=== PATIENT | female | born 1965 | race African-American/Black ===

== ENCOUNTER 2016-09-19 06:22 | Emergency (ER) | payer MEDICAID ==
[~2016-09-19] VITALS: Ht 167.6 cm; Wt 84.1 kg
[~2016-09-19 06:22] MED LIST: ADVAIR; BUSPIRONE; DIPHENHYDRAMINE; FLUTICASONE; LEVOFLOXACIN; LEVOTHYROXINE; PRIL10; RANI-84; SULFAMETHOXAZOLE
[2016-09-19] MEDS ORDERED: ALBUTEROL (0.083%) 2.5MG/3ML NEB HHN ONE (07:45)
[2016-09-19] MEDS ORDERED: PREDNISONE 20MG TABLET PO ONE (07:45)
[2016-09-19] MEDS ORDERED: ACETAMINOPHEN WITH CODEINE 120-12MG/5ML UDC PO ONE (07:45)
[2016-09-19 08:07] LABS: CLARITY URINE CLEAR (CLEAR); COLOR URINE YELLOW (YELLOW); GLUCOSE URINE NEGATIVE (NEGATIVE); KETONES URINE NEGATIVE (NEGATIVE); LEUKOCYTE ESTERASE URINE NEGATIVE (NEGATIVE); NITRITE URINE NEGATIVE (NEGATIVE); OCCULT BLOOD URINE 1+ (NEGATIVE); PH URINE 5.5 (4.5-8.0); PROTEIN URINE TRACE (NEGATIVE); SPECIFIC GRAVITY URINE 1.028 (1.005-1.030); UROBILINOGEN URINE 0.2 E.U./dL (0.2-1.0)
[2016-09-19] MEDS ORDERED: ALBUTEROL (0.083%) 2.5MG/3ML NEB ONE (08:09)
[2016-09-19 08:18] LABS: WBC URINE 0-2 /hpf (0-2)
[2016-09-19 08:19] LABS: BACTERIA URINE 1+; MUCUS URINE 1+ /lpf (< = 2+); SQUAMOUS EPITHELIAL CELL URINE 2+ /lpf (RARE/1+)
[2016-09-19] MEDS ORDERED: IPRATROPIUM/ALBUTEROL 0.5-3(2.5)MG/3ML NEB HHN ONE (08:45)
[2016-09-19] MEDS ORDERED: LEVOFLOXACIN 750MG PREMIX 150 ML IV ONE (08:45)
[2016-09-19 10:35] VITALS: BP 134/80
== END 2016-09-19 12:00 | disposition home or self-care (01) ==
LOC: ER 07:38
DX: J18.9 Pneumonia, unspecified organism (principal); E03.9 Hypothyroidism, unspecified; J45.909 Unspecified asthma, uncomplicated; Z88.6 Allergy status to analgesic agent; Z91.041 Radiographic dye allergy status; Z90.81 Acquired absence of spleen
CPT/HCPCS: 71020; 81001; 81025; 94640; 96365; 99285; J1956; J7512; J7611; Z7610; J7620

== ENCOUNTER 2017-03-08 12:51 | Inpatient (IN) | payer MEDICAID ==
[~2017-03-08] VITALS: Ht 167.6 cm; Wt 83.0 kg
[~2017-03-08 12:51] MED LIST changes: -RANI-84; +RANI150T12
[2017-03-08] MEDS ORDERED: METHYLPREDNISOLONE SOD SUCC 125 MG/2 ML VIAL IV ONE (18:30)
[2017-03-08] MEDS ORDERED: ALBUTEROL (0.5%) 2.5MG/0.5ML NEB HHN ONE (18:30)
[2017-03-08] MEDS ORDERED: ALBUTEROL (0.083%) 2.5MG/3ML NEB HHN ONE (19:30)
[2017-03-08 21:15] LABS: BASOPHILS % 0.2 % (0.0-2.0); EOSINOPHILS % 0.9 % (0.0-5.0); HEMATOCRIT. 42.4 % (36.0-48.0); HEMOGLOBIN. 13.7 g/dL (12.0-16.0); LYMPHOCYTES % 10.2 % (20.0-50.0); MEAN CORPUSCULAR HEMOGLOBIN 31.3 pg (28.0-32.0); MEAN CORPUSCULAR VOLUME 96.9 fL (81.0-99.0); MEAN PLATELET VOLUME 11.3 fl (7.4-10.4); NEUTROPHILS % 84.7 % (40.0-76.0); RED BLOOD CELL COUNT 4.37 mill/uL (4.2-5.4); RED CELL DISTRIBUTION WIDTH 15.1 % (11.6-14.6)
[2017-03-08] MEDS ORDERED: CEFTRIAXONE SODIUM 1 G/VIAL IM ONE (21:15)
[2017-03-08] MEDS ORDERED: LEVOFLOXACIN 750MG PREMIX 150 ML IV ONE (21:15)
[2017-03-08 21:33] LABS: PLATELET 208 x1000/uL (130-400)
[2017-03-08 21:51] LABS: CARBON DIOXIDE 29 mEq/L (21-32); CHLORIDE 105 mEq/L (98-107)
[2017-03-08 22:00] LABS: TROPONIN I 0.03 ng/mL (0.00-0.04)
[2017-03-08] MEDS ORDERED: LIDOCAINE HCL 1% 20ML VIAL (Pyxis) INJ INFIL ONE (22:00)
[2017-03-08] MEDS ORDERED: FUROSEMIDE 20MG/2ML VIAL IVP ONE (23:00)
[2017-03-08] MEDS ORDERED: POTASSIUM CHLORIDE 10MEQ TABLET SR PO ONE (23:00)
[2017-03-09] VITALS (7 sets, daily range): BP systolic 106–140; BP diastolic 60–91
[2017-03-09] MEDS ORDERED: FLUT16SP15 BOTHNSTRLS (02:32)
[2017-03-09] MEDS ORDERED: DIPH25CA83 PO (02:33)
[2017-03-09] MEDS ORDERED: BUDE6HFA PO (02:42)
[2017-03-09] MEDS ORDERED: LEVO100T9 PO (02:42)
[2017-03-09] MEDS: ENOXAPARIN 40MG/0.4ML SYR SUBCUT SCH (08:37)
[2017-03-09] MEDS: LEVOTHYROXINE SODIUM 100MCG TABLET PO SCH (08:37)
[2017-03-09] MEDS: OMEPRAZOLE 20MG CAPSULE EXTENDED RELEASE PO SCH (08:37)
[2017-03-09 08:42] LABS: BASOPHILS % 0.3 % (0.0-2.0); HEMATOCRIT. 42.8 % (36.0-48.0); HEMOGLOBIN. 13.9 g/dL (12.0-16.0); LYMPHOCYTES % 10.2 % (20.0-50.0); MEAN CORPUSCULAR HEMOGLOBIN 31.4 pg (28.0-32.0); MEAN CORPUSCULAR VOLUME 96.6 fL (81.0-99.0); MONOCYTES % 5.8 % (2.0-8.0); NEUTROPHILS % 83.7 % (40.0-76.0); RED BLOOD CELL COUNT 4.43 mill/uL (4.2-5.4)
[2017-03-09] MEDS: IPRATROPIUM/ALBUTEROL 0.5-3(2.5)MG/3ML NEB HHN SCH ×4 (08:51→19:54)
[2017-03-09] MEDS ORDERED: DIPHENHYDRAMINE 25MG CAPSULE PO PRN (09:00)
[2017-03-09 09:11] LABS: CARBON DIOXIDE 32 mEq/L (21-32); CHLORIDE 101 mEq/L (98-107)
[2017-03-09 11:01] LABS: PLATELET 258 x1000/uL (130-400)
[2017-03-09] MEDS: METHYLPREDNISOLONE SOD SUCC 40 MG/ML VIAL IV SCH (19:35)
[2017-03-09] MEDS: LEVOFLOXACIN 500MG PREMIX 100 ML IV SCH (20:50)
[2017-03-10] VITALS: BP 104/70
[2017-03-10] MEDS: IPRATROPIUM/ALBUTEROL 0.5-3(2.5)MG/3ML NEB HHN SCH ×6 (00:08→21:20)
[2017-03-10] MEDS: METHYLPREDNISOLONE SOD SUCC 40 MG/ML VIAL IV SCH ×3 (03:03→18:03)
[2017-03-10 04:00] VITALS: BP 113/62
[2017-03-10 06:12] LABS: CARBON DIOXIDE 27 mEq/L (21-32); CHLORIDE 100 mEq/L (98-107)
[2017-03-10 06:14] LABS: BASOPHILS % 0.2 % (0.0-2.0); HEMATOCRIT. 40.2 % (36.0-48.0); HEMOGLOBIN. 13.1 g/dL (12.0-16.0); LYMPHOCYTES % 8.9 % (20.0-50.0); MEAN CORPUSCULAR HEMOGLOBIN 31.3 pg (28.0-32.0); MEAN CORPUSCULAR VOLUME 96.5 fL (81.0-99.0); MEAN PLATELET VOLUME 12.5 fl (7.4-10.4); MONOCYTES % 4.8 % (2.0-8.0); NEUTROPHILS % 86.1 % (40.0-76.0); PLATELET 173 x1000/uL (130-400); RED BLOOD CELL COUNT 4.17 mill/uL (4.2-5.4); RED CELL DISTRIBUTION WIDTH 15.4 % (11.6-14.6); TROPONIN I < 0.02 ng/mL (0.00-0.04)
[2017-03-10] MEDS: OMEPRAZOLE 20MG CAPSULE EXTENDED RELEASE PO SCH (06:29)
[2017-03-10] MEDS: LEVOTHYROXINE SODIUM 100MCG TABLET PO SCH (06:30)
[2017-03-10 08:00] VITALS: BP 90/63
[2017-03-10] MEDS: GUAIFENESIN/DM 600MG/30MG ER TAB 12HR PO SCH ×2 (09:45→21:17)
[2017-03-10] MEDS: ENOXAPARIN 40MG/0.4ML SYR SUBCUT SCH (09:45)
[2017-03-10] MEDS: MAGNESIUM OXIDE 400MG TABLET PO SCH (11:59)
[2017-03-10 12:15] VITALS: BP 125/70
[2017-03-10 17:00] VITALS: BP 106/67
[2017-03-10 20:00] VITALS: BP 116/68
[2017-03-10] MEDS: LEVOFLOXACIN 500MG PREMIX 100 ML IV SCH (21:17)
[2017-03-11] MEDS: IPRATROPIUM/ALBUTEROL 0.5-3(2.5)MG/3ML NEB HHN SCH ×5 (01:38→16:25)
[2017-03-11] MEDS: METHYLPREDNISOLONE SOD SUCC 40 MG/ML VIAL IV SCH ×2 (03:00→09:43)
[2017-03-11 03:09] VITALS: BP 99/48
[2017-03-11] MEDS: OMEPRAZOLE 20MG CAPSULE EXTENDED RELEASE PO SCH (06:22)
[2017-03-11] MEDS: LEVOTHYROXINE SODIUM 100MCG TABLET PO SCH (06:22)
[2017-03-11 07:15] LABS: BASOPHILS % 0.3 % (0.0-2.0); HEMATOCRIT. 41.2 % (36.0-48.0); HEMOGLOBIN. 13.4 g/dL (12.0-16.0); LYMPHOCYTES % 12.1 % (20.0-50.0); MEAN CORPUSCULAR HEMOGLOBIN 31.4 pg (28.0-32.0); MEAN CORPUSCULAR VOLUME 96.3 fL (81.0-99.0); MONOCYTES % 9.1 % (2.0-8.0); NEUTROPHILS % 78.5 % (40.0-76.0); RED BLOOD CELL COUNT 4.27 mill/uL (4.2-5.4)
[2017-03-11 07:32] LABS: CARBON DIOXIDE 34 mEq/L (21-32); CHLORIDE 102 mEq/L (98-107)
[2017-03-11 08:00] VITALS: BP 141/86
[2017-03-11 09:13] LABS: PLATELET 233 x1000/uL (130-400)
[2017-03-11] MEDS: ENOXAPARIN 40MG/0.4ML SYR SUBCUT SCH (09:44)
[2017-03-11] MEDS: MAGNESIUM OXIDE 400MG TABLET PO SCH (09:44)
[2017-03-11] MEDS: GUAIFENESIN/DM 600MG/30MG ER TAB 12HR PO SCH (09:44)
[2017-03-11 11:54] VITALS: BP 115/62
[2017-03-11 13:14] LABS: UCG SCREEN NEGATIVE
[2017-03-11] MEDS ORDERED: LEVOFLOXACIN 500MG TABLET PO SCH (15:00)
[2017-03-11 15:57] VITALS: BP 131/74
[2017-03-11 16:02] VITALS: BP 131/74
[2017-03-12] MEDS ORDERED: FAMOTIDINE 20MG TABLET PO SCH (09:00)
== END 2017-03-11 17:00 | disposition home or self-care (01) | DRG 141 ==
LOC: ER 16:26 → 8WST 22:51 → CANRESERV 23:15 → ENRESERV 23:15 → 8WST 03-09 02:36
PROVIDERS: ADMIT Internal Medicine; ATTEND Internal Medicine
DX: J45.901 Unspecified asthma with (acute) exacerbation (principal); J18.9 Pneumonia, unspecified organism; R65.10 Systemic inflammatory response syndrome (SIRS) of non-infectious origin without acute organ dysfunction; E83.42 Hypomagnesemia; I10 Essential (primary) hypertension; I49.3 Ventricular premature depolarization; E87.6 Hypokalemia; Z90.81 Acquired absence of spleen; E03.9 Hypothyroidism, unspecified; F17.200 Nicotine dependence, unspecified, uncomplicated; Z82.5 Family history of asthma and other chronic lower respiratory diseases; Z85.71 Personal history of Hodgkin lymphoma; Z87.01 Personal history of pneumonia (recurrent); Z88.8 Allergy status to other drugs, medicaments and biological substances; Z88.6 Allergy status to analgesic agent; Z91.041 Radiographic dye allergy status
CPT/HCPCS: 36415; 71010; 71250; 80048; 81025; 83735; 83880; 84484; 85025; 86635; 87040; 93005; 93306; 94640; 96365; 96372; 99285; J0696; J1650; J1940; J1956; J2920; J2930; J3490; J7040; J7611; J7620

== ENCOUNTER 2017-11-06 07:50 | Emergency (ER) | payer MEDICAID ==
[~2017-11-06] VITALS: Ht 167.6 cm; Wt 70.0 kg
[~2017-11-06 07:50] MED LIST changes: +BUDE6HFA PO; +DIPH25CA83 PO; +FLUT16SP15 BOTHNSTRLS; +LEVO100T9 PO
[2017-11-06] MEDS ORDERED: SODIUM CHLORIDE 0.9% 1,000 ML IV ONE (08:43)
[2017-11-06] MEDS ORDERED: MORPHINE SULFATE 4 MG/ML CPJ (NOT FOR IM USE) IV STA ×2 (08:43→12:39)
[2017-11-06] MEDS ORDERED: METHYLPREDNISOLONE SOD SUCC 125 MG/2 ML VIAL IV STA ×2 (08:43→12:39)
[2017-11-06] MEDS ORDERED: ONDANSETRON HCL 4MG/2ML VIAL IV STA ×2 (08:43→12:39)
[2017-11-06] MEDS ORDERED: MAGNESIUM 2 G PREMIX 50 ML IV ONE (08:45)
[2017-11-06] MEDS ORDERED: IPRATROPIUM/ALBUTEROL 0.5-3(2.5)MG/3ML NEB HHN ONE (08:45)
[2017-11-06] MEDS ORDERED: LEVOFLOXACIN 750MG PREMIX 150 ML IV ONE (08:45)
[2017-11-06 08:52] LABS: CLARITY URINE CLEAR (CLEAR); COLOR URINE YELLOW (YELLOW); KETONES URINE 2+ (NEGATIVE); LEUKOCYTE ESTERASE URINE NEGATIVE (NEGATIVE); NITRITE URINE NEGATIVE (NEGATIVE); OCCULT BLOOD URINE NEGATIVE (NEGATIVE); PROTEIN URINE NEGATIVE (NEGATIVE); SPECIFIC GRAVITY URINE 1.026 (1.005-1.030); UROBILINOGEN URINE 0.2 E.U./dL (0.2-1.0)
[2017-11-06 09:41] LABS: HEMATOCRIT. 45.8 % (36.0-48.0); HEMOGLOBIN. 15.1 g/dL (12.0-16.0); MEAN CORPUSCULAR HEMOGLOBIN 31.8 pg (28.0-32.0); MEAN CORPUSCULAR VOLUME 96.4 fL (81.0-99.0); RED BLOOD CELL COUNT 4.75 mill/uL (4.2-5.4); RED CELL DISTRIBUTION WIDTH 14.1 % (11.6-14.6)
[2017-11-06 09:48] LABS: INR 1.1
[2017-11-06 10:01] LABS: HCG SCREEN NEGATIVE
[2017-11-06 10:26] LABS: CHLORIDE 100 mEq/L (98-107)
[2017-11-06 10:38] LABS: ETHANOL BLOOD < 10 mg/dL
[2017-11-06 11:19] LABS: CREATINE KINASE 308 IU/L (26-192)
[2017-11-06 12:15] LABS: *AMPHETAMINES SCREEN URINE NEGATIVE (NEGATIVE); *BARBITURATES SCREEN URINE NEGATIVE (NEGATIVE); *BENZODIAZEPINES SCREEN URINE NEGATIVE (NEGATIVE); *COCAINE SCREEN URINE NEGATIVE (NEGATIVE); CANNABINOID URINE SCREEN PRESUMTIVE POSITIVE (NEGATIVE); PHENCYCLIDINE URINE SCREEN NEGATIVE (NEGATIVE)
[2017-11-06 12:16] LABS: METHADONE URINE SCREEN NEGATIVE (NEGATIVE); OPIATES URINE SCREEN NEGATIVE (NEGATIVE)
[2017-11-06] MEDS ORDERED: FAMOTIDINE 20MG/2ML VIAL IV STA (12:39)
[2017-11-06] MEDS ORDERED: MAGNESIUM/ALUMINUM HYDROXIDE/SIMETHICONE 30ML UDC PO STA (12:39)
[2017-11-06] MEDS ORDERED: DIPHENHYDRAMINE 50MG/ML VIAL IV ONE (14:30)
[2017-11-06] MEDS ORDERED: MORPHINE SULFATE 4 MG/ML CPJ (NOT FOR IM USE) IV ONE (14:30)
[2017-11-06] MEDS ORDERED: ONDANSETRON HCL 4MG/2ML VIAL IV ONE (14:30)
[2017-11-06 15:18] VITALS: BP 141/75
== END 2017-11-06 15:22 | disposition home or self-care (01) ==
LOC: ER 07:52 → CANBEDREQ 14:18 → ER 15:22
DX: K29.70 Gastritis, unspecified, without bleeding (principal); R11.2 Nausea with vomiting, unspecified; J45.909 Unspecified asthma, uncomplicated; Z88.6 Allergy status to analgesic agent; Z90.81 Acquired absence of spleen; K42.9 Umbilical hernia without obstruction or gangrene; E05.90 Thyrotoxicosis, unspecified without thyrotoxic crisis or storm
CPT/HCPCS: 36415; 71045; 74176; 80053; 80305; 81003; 81025; 82550; 83605; 83690; 83880; 84484; 84703; 85025; 85610; 87040; 93005; 96365; 96366; 96368; 96375; 96376; 99285; G0482; J1200; J1956; J2270; J2405; J2930; J3475; J3490; J7030; J7620

== ENCOUNTER 2019-08-24 23:21 | Inpatient (IN) | payer MEDICAID ==
[~2019-08-24] VITALS: Ht 167.6 cm; Wt 81.6 kg
[~2019-08-24 23:21] MED LIST changes: +RANI-655; -RANI150T12
[2019-08-25 00:24] LABS: BASOPHILS % 0.9 % (0.0-2.0); EOSINOPHILS % 6.4 % (0.0-5.0); HEMATOCRIT. 42.9 % (36.0-48.0); HEMOGLOBIN. 13.9 g/dL (12.0-16.0); LYMPHOCYTES % 25.8 % (20.0-50.0); MEAN CORPUSCULAR HEMOGLOBIN 31.6 pg (28.0-32.0); MEAN CORPUSCULAR VOLUME 97.5 fL (81.0-99.0); MONOCYTES % 9.1 % (2.0-8.0); NEUTROPHILS % 57.8 % (40.0-76.0); RED CELL DISTRIBUTION WIDTH 14.7 % (11.6-14.6)
[2019-08-25 00:27] LABS: CHLORIDE 107 mEq/L (98-107)
[2019-08-25 01:05] LABS: MEAN PLATELET VOLUME 11.5 fl (7.4-10.4); PLATELET 187 x1000/uL (130-400)
[2019-08-25 01:29] LABS: *AMPHETAMINES SCREEN URINE NEGATIVE (NEGATIVE); *BARBITURATES SCREEN URINE NEGATIVE (NEGATIVE); *BENZODIAZEPINES SCREEN URINE NEGATIVE (NEGATIVE); *COCAINE SCREEN URINE NEGATIVE (NEGATIVE); METHADONE URINE SCREEN NEGATIVE (NEGATIVE); PHENCYCLIDINE URINE SCREEN NEGATIVE (NEGATIVE)
[2019-08-25 01:30] LABS: CANNABINOID URINE SCREEN PRESUMTIVE POSITIVE (NEGATIVE)
[2019-08-25] MEDS ORDERED: CLOPIDOGREL 75MG TABLET PO ONE (02:45)
[2019-08-25 08:30] VITALS: BP 120/79
[2019-08-25 09:00] VITALS: BP 120/79
[2019-08-25] MEDS ORDERED: BENZONATATE 100MG CAPSULE PO PRN (10:30)
[2019-08-25] MEDS ORDERED: IPRATROPIUM/ALBUTEROL 0.5-3(2.5)MG/3ML NEB HHN PRN (10:30)
[2019-08-25 12:00] VITALS: BP 125/80
[2019-08-25] MEDS ORDERED: ALBU05 NEB (12:16)
[2019-08-25] MEDS: METHYLPREDNISOLONE SOD SUCC 40 MG/ML VIAL IV SCH ×2 (13:01→18:22)
[2019-08-25] MEDS: ENOXAPARIN 80MG/0.8ML SYR SUBCUT SCH ×2 (13:06→21:33)
[2019-08-25] MEDS: IPRATROPIUM/ALBUTEROL 0.5-3(2.5)MG/3ML NEB HHN SCH ×2 (13:07→20:19)
[2019-08-25 16:00] VITALS: BP 122/60
[2019-08-25 17:54] LABS: CLARITY URINE CLEAR (CLEAR); COLOR URINE YELLOW (YELLOW); KETONES URINE NEGATIVE (NEGATIVE); LEUKOCYTE ESTERASE URINE NEGATIVE (NEGATIVE); NITRITE URINE NEGATIVE (NEGATIVE); OCCULT BLOOD URINE NEGATIVE (NEGATIVE); PH URINE 6.5 (4.5-8.0); PROTEIN URINE NEGATIVE (NEGATIVE); SPECIFIC GRAVITY URINE 1.013 (1.005-1.030); UROBILINOGEN URINE 0.2 E.U./dL (0.2-1.0)
[2019-08-25 20:00] VITALS: BP 127/86
[2019-08-25] MEDS: FAMOTIDINE 20MG TABLET PO SCH (21:32)
[2019-08-26] VITALS: BP 133/93
[2019-08-26] MEDS: METHYLPREDNISOLONE SOD SUCC 40 MG/ML VIAL IV SCH ×3 (03:18→19:09)
[2019-08-26 04:00] VITALS: BP 126/65
[2019-08-26] MEDS: IPRATROPIUM/ALBUTEROL 0.5-3(2.5)MG/3ML NEB HHN SCH ×5 (04:20→21:32)
[2019-08-26 06:33] LABS: INR 1.1; PROTHROMBIN TIME 11.7 sec (9.6-11.0)
[2019-08-26 06:39] LABS: CHLORIDE 103 mEq/L (98-107)
[2019-08-26 06:54] LABS: BASOPHILS % 0.2 % (0.0-2.0); HEMATOCRIT. 45.5 % (36.0-48.0); HEMOGLOBIN. 15.4 g/dL (12.0-16.0); LYMPHOCYTES % 10.2 % (20.0-50.0); MEAN CORPUSCULAR HEMOGLOBIN 32.5 pg (28.0-32.0); MEAN CORPUSCULAR VOLUME 96.2 fL (81.0-99.0); MEAN PLATELET VOLUME 12.2 fl (7.4-10.4); MONOCYTES % 2.9 % (2.0-8.0); NEUTROPHILS % 86.7 % (40.0-76.0); PLATELET 243 x1000/uL (130-400); RED BLOOD CELL COUNT 4.73 mill/uL (4.2-5.4); RED CELL DISTRIBUTION WIDTH 14.7 % (11.6-14.6)
[2019-08-26 08:00] VITALS: BP 116/83
[2019-08-26] MEDS: ENOXAPARIN 80MG/0.8ML SYR SUBCUT SCH (08:38)
[2019-08-26] MEDS: LEVOTHYROXINE SODIUM 100MCG TABLET PO SCH (08:38)
[2019-08-26] MEDS: FAMOTIDINE 20MG TABLET PO SCH ×2 (08:39→21:31)
[2019-08-26 11:45] LABS: PLATELET ESTIMATE NORMAL
[2019-08-26 13:04] VITALS: BP 113/72
[2019-08-26] MEDS ORDERED: FUROSEMIDE 20MG/2ML VIAL IVP NR (13:15)
[2019-08-26] MEDS: LOSARTAN POTASSIUM 50 MG TABLET PO SCH (13:49)
[2019-08-26] MEDS: ACETAMINOPHEN 325MG TABLET PO PRN ×2 (13:50→19:09)
[2019-08-26 18:00] VITALS: BP 127/80
[2019-08-26] MEDS: APIXABAN 5 MG TABLET PO SCH (19:18)
[2019-08-26 20:00] VITALS: BP 138/83
[2019-08-26] MEDS: CARVEDILOL 6.25 MG TABLET PO SCH (21:31)
[2019-08-26] MEDS: ACETAMINOPHEN WITH CODEINE 300/30MG TABLET PO PRN (22:32)
[2019-08-27] VITALS: BP 119/65
[2019-08-27] MEDS: METHYLPREDNISOLONE SOD SUCC 40 MG/ML VIAL IV SCH ×2 (02:20→09:37)
[2019-08-27 04:00] VITALS: BP 100/60
[2019-08-27] MEDS: IPRATROPIUM/ALBUTEROL 0.5-3(2.5)MG/3ML NEB HHN SCH ×5 (05:23→16:07)
[2019-08-27] MEDS: ACETAMINOPHEN WITH CODEINE 300/30MG TABLET PO PRN ×2 (08:19→15:41)
[2019-08-27] MEDS: LEVOTHYROXINE SODIUM 100MCG TABLET PO SCH (08:19)
[2019-08-27] MEDS: CARVEDILOL 6.25 MG TABLET PO SCH (08:45)
[2019-08-27] MEDS: LOSARTAN POTASSIUM 50 MG TABLET PO SCH (08:45)
[2019-08-27] MEDS: FAMOTIDINE 20MG TABLET PO SCH (08:45)
[2019-08-27] MEDS: APIXABAN 5 MG TABLET PO SCH ×2 (08:45→17:53)
[2019-08-27] MEDS ORDERED: FUROSEMIDE 20MG TABLET PO SCH (10:15)
[2019-08-27] MEDS ORDERED: POTASSIUM CHLORIDE 20MEQ TABLET SR PO SCH (10:15)
[2019-08-27] MEDS ORDERED: POTASSIUM CHLORIDE 10MEQ TABLET SR PO SCH (10:29)
[2019-08-27] MEDS ORDERED: BENZONATATE 100MG CAPSULE PO PRN (11:15)
[2019-08-27 12:00] VITALS: BP 104/69
[2019-08-27 16:00] VITALS: BP 113/71
[2019-08-27] MEDS ORDERED: LEVO100T9 PO (16:44)
[2019-08-27 17:17] VITALS: BP 113/71
[2019-08-27 20:40] LABS: OPIATES URINE SCREEN NEGATIVE (NEGATIVE)
[2019-08-28] MEDS ORDERED: PREDNISONE 20MG TABLET PO SCH (09:00)
== END 2019-08-27 19:00 | disposition home or self-care (01) | DRG 194 ==
LOC: ER 23:21 → 7WST 08-25 02:33 → ENRESERV 08-25 07:26
PROVIDERS: ADMIT Internal Medicine; ATTEND Internal Medicine
DX: I11.0 Hypertensive heart disease with heart failure (principal); I26.99 Other pulmonary embolism without acute cor pulmonale; J96.00 Acute respiratory failure, unspecified whether with hypoxia or hypercapnia; J44.1 Chronic obstructive pulmonary disease with (acute) exacerbation; I82.90 Acute embolism and thrombosis of unspecified vein; I27.20 Pulmonary hypertension, unspecified; J45.901 Unspecified asthma with (acute) exacerbation; I51.3 Intracardiac thrombosis, not elsewhere classified; I50.21 Acute systolic (congestive) heart failure; I42.9 Cardiomyopathy, unspecified; J45.909 Unspecified asthma, uncomplicated; E03.9 Hypothyroidism, unspecified; Z85.71 Personal history of Hodgkin lymphoma; Z90.81 Acquired absence of spleen; Z92.21 Personal history of antineoplastic chemotherapy; Z87.891 Personal history of nicotine dependence; Z82.5 Family history of asthma and other chronic lower respiratory diseases; Z88.8 Allergy status to other drugs, medicaments and biological substances; Z88.6 Allergy status to analgesic agent; Z91.041 Radiographic dye allergy status; Z79.899 Other long term (current) drug therapy
CPT/HCPCS: 36415; 71045; 78582; 80048; 80053; 80305; 81003; 83880; 84439; 84443; 84484; 85025; 85379; 87804; 93005; 93306; 94640; 99285; A9558; J1650; J1940; J2920

== ENCOUNTER 2021-11-26 12:50 | Emergency (ER) | payer MEDICAID ==
[~2021-11-26] VITALS: Ht 167.6 cm; Wt 77.0 kg
[~2021-11-26 12:50] MED LIST changes: -ADVAIR; -BUSPIRONE; -DIPH25CA83 PO; -DIPHENHYDRAMINE; -FLUTICASONE; -LEVOFLOXACIN; -LEVOTHYROXINE; -PRIL10; -RANI-655; -SULFAMETHOXAZOLE
[2021-11-26 13:22] VITALS: BP 126/80
[2021-11-26 14:53] LABS: CLARITY URINE CLOUDY (CLEAR); COLOR URINE DARK YELLOW (YELLOW); KETONES URINE TRACE (NEGATIVE); LEUKOCYTE ESTERASE URINE TRACE (NEGATIVE); NITRITE URINE NEGATIVE (NEGATIVE); OCCULT BLOOD URINE NEGATIVE (NEGATIVE); PROTEIN URINE 1+ (NEGATIVE); SPECIFIC GRAVITY URINE 1.034 (1.005-1.030)
[2021-11-26 15:06] LABS: BASOPHILS % 0.6 % (0.0-2.0); HEMATOCRIT. 47.3 % (36.0-48.0); HEMOGLOBIN. 15.8 g/dL (12.0-16.0); LYMPHOCYTES % 15.8 % (20.0-50.0); MEAN CORPUSCULAR HEMOGLOBIN 31.7 pg (28.0-32.0); MEAN CORPUSCULAR VOLUME 95.3 fL (81.0-99.0); NEUTROPHILS % 68.6 % (40.0-76.0); RED BLOOD CELL COUNT 4.97 mill/uL (4.2-5.4); RED CELL DISTRIBUTION WIDTH 14.4 % (11.6-14.6)
[2021-11-26 15:17] LABS: CHLORIDE 100 mEq/L (98-107)
[2021-11-26 16:09] LABS: MEAN PLATELET VOLUME 10.7 fl (7.4-10.4); PLATELET 182 x1000/uL (130-400)
[2021-11-26] MEDS ORDERED: CEFP200T13 MT (16:23)
== END 2021-11-26 18:31 | disposition home or self-care (01) ==
LOC: ER 13:33
DX: N12 Tubulo-interstitial nephritis, not specified as acute or chronic (principal); E87.1 Hypo-osmolality and hyponatremia; J45.909 Unspecified asthma, uncomplicated; E03.9 Hypothyroidism, unspecified; I51.9 Heart disease, unspecified; Z88.6 Allergy status to analgesic agent; Z91.041 Radiographic dye allergy status; Z98.890 Other specified postprocedural states
CPT/HCPCS: 36415; 80048; 81003; 85025; 99283